=== PATIENT | female | born 1950 | race Caucasian/White ===

== ENCOUNTER 2018-05-10 18:21 | Emergency (ER) | payer MEDICARE, BC ==
[2018-05-10] MEDS ORDERED: BACITRACIN 500 U/GM OIN TOP ONE ×2 (18:27→19:20)
[2018-05-10 20:10] VITALS: BP 130/83; PULSE 77; RESP 20; TEMP 97.8; O2SAT 99
== END 2018-05-10 19:38 | disposition home or self-care (01) | DRG 607 ==
LOC: ED 18:21
DX: R23.4 Changes in skin texture (principal)
CPT/HCPCS: 99282; A6402; A6446; A9270-GY; E0114